=== PATIENT | female | born 1990 | race African-American/Black ===

== ENCOUNTER 2017-01-02 07:17 | Emergency (ER) | payer SELFPAY ==
[~2017-01-02] VITALS: Ht 165.1 cm; Wt 73.6 kg
[2017-01-02 07:23] VITALS: BP 141/61; PULSE 88; TEMP 99
[2017-01-02] MEDS ORDERED: DOXYCYCLINE 10100 MG PO (07:53)
[2017-01-02] MEDS ORDERED: OMNICEF 300MG300 MG PO (07:53)
[2017-01-02] MEDS ORDERED: ILOTYCIN5 MG/GM OP (07:53)
[2017-01-02] MEDS ORDERED: VALTREX1 GM PO (07:55)
[2017-01-02] MEDS ORDERED: CEFACLOR500 M2 PO (07:56)
[2017-01-02] MEDS ORDERED: ZOFRAN ODT8 MG PO (08:06)
== END 2017-01-02 08:24 | disposition home or self-care (01) ==
LOC: COL.ER 07:17
DX: H04.302 Unspecified dacryocystitis of left lacrimal passage (principal); F17.210 Nicotine dependence, cigarettes, uncomplicated